=== PATIENT | male | born 1990 | race Caucasian/White ===

== ENCOUNTER → 2020-04-09 13:33 | Outpatient (BNVA) | payer OTHER, SELFPAY | PROVIDERS: PCP Family Medicine; Visit Provider Family Medicine | DX: I10 Essential (primary) hypertension (principal); E78.2 Mixed hyperlipidemia; M54.12 Radiculopathy, cervical region; M51.36 Other intervertebral disc degeneration, lumbar region; M54.42 Lumbago with sciatica, left side; M54.41 Lumbago with sciatica, right side; G89.29 Other chronic pain; Z13.1 Encounter for screening for diabetes mellitus | CPT/HCPCS: 80053; 80061 ==

== ENCOUNTER → 2020-05-30 09:14 | Outpatient (BNVA) | payer OTHER, SELFPAY | PROVIDERS: PCP Family Medicine; Visit Provider Family Medicine Adult Medicine | DX: Z20.822 Contact with and (suspected) exposure to COVID-19 (principal) | CPT/HCPCS: 87635 ==

== ENCOUNTER → 2020-08-27 13:28 | Outpatient (BNVA) | payer OTHER, SELFPAY | PROVIDERS: PCP Family Medicine; Visit Provider Family Medicine | DX: F11.20 Opioid dependence, uncomplicated (principal); M51.36 Other intervertebral disc degeneration, lumbar region | CPT/HCPCS: 80307 ==

== ENCOUNTER → 2020-08-28 00:01 | Outpatient (BNVA) | payer OTHER, SELFPAY | PROVIDERS: PCP Family Medicine; Visit Provider Family Medicine | DX: M51.36 Other intervertebral disc degeneration, lumbar region (principal); F11.20 Opioid dependence, uncomplicated | CPT/HCPCS: 80307 ==

== ENCOUNTER 2025-02-23 11:19 | Emergency (ER) | payer MEDICAID, SELFPAY ==
[2025-02-23 11:25] VITALS: BP 173/100; PULSE 70; RESP 16; TEMP 36.6; O2SAT 100; BMI 32.1
--- OUTSIDE RECORDS SUMMARY | 2025-02-23 11:30 | XMS_ITS | Encounter Summary ---
Author Organization [facility] Address [address] [place] [address] Care Team Providers Care Director Of Accounts Receivable Name Role Phone Donna Greer Primary Care Provider Encounter Details Date Type Department Care Team (Latest Contact Info) Description 06/08/2006 Outpatient Historical [facility] Medicine- [address] [phone] Barbra Fernandez MD [address] [place] [id number] Routine Child Health Exam (Primary Dx); Vaccin for DTP; Vaccin 1 Bacteria NEC Social History Tobacco Use Types Packs/Day Years Used Date Smoking Tobacco: Never Assessed Sex and Gender Information Value Date Recorded Sex Assigned at Not on file 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 Gender Identity Not on file Sexual Orientation Not on file documented as of this encounter Plan of Treatment Not on file documented as of this encounter Visit Diagnoses Diagnosis Routine child health exam- Primary Routine infant or child health check Need for prophylactic vaccination with combined dcfwammvky-mpczkot-vbefvndpl (DTP) vaccine Need for other specified prophylactic vaccination against single bacterial disease documented in this encounter Care Teams Director Of Accounts Receivable Relationship Specialty Start Date End Date Donna Greer FNP PCP - General Nurse Practitioner Family 08/13/20 documented as of this encounter
--- OUTSIDE RECORDS SUMMARY | 2025-02-23 11:30 | XMS_ITS | Encounter Summary ---
Author Organization [facility] Address [address] [place] [address] Care Team Providers Care Blow Torch Operator Name Role Phone Donna Greer Primary Care Provider [phone] Encounter Details Date Type Department Care Team (Latest Contact Info) Description 10/20/2006 Outpatient [facility] Medicine[address] [phone] Barbra Fernandez MD [address] [place] [address] Pain in Thoracic Spine (Primary Dx) Social History Tobacco Use Types Packs/Day Years Used Date Smoking Tobacco: Never Assessed Sex and Gender Information Value Date Recorded Sex Assigned at Not on file 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
--- OUTSIDE RECORDS SUMMARY | 2025-02-23 11:30 | XMS_ITS | Encounter Summary ---
Author Organization [facility] Address [address] [place] [address] Care Team Providers Care Gym Manager Name Role Phone Donna Greer Primary Care Provider [phone] Reason for Referral * MRI (Routine) - Closed Specialty Diagnoses / Procedures Referred By Contac t Referred To Contact Radiology Diagnoses Neuropathy Spondylolisthesis of lumbar region Muscle spasm Low back pain with bilateral sciatica, unspecified back pain laterality, unspecified chronicity Procedures MRI LUMBAR WO CONTRAST Donna Greer FNP Phone: tel: fax: [facility] [address] [address] Phone: tel: fax: Referral ID Status Reason Start Date Expiration Date V isits Requested Visits Authorized [id number] Closed F CTS to Schedule 12/29/2019 04/27/2020 1 1 Encounter Details Date Type Department Care Team (Latest Contact Info) Description 12/09/2019 Ancillary Orders [facility] Pre-Registration [facility] CALL TO MAKE APPOINTMENT ONLY [address] [place] [address] Donna Greer FNP [address] [place] [address] Neuropathy; Spondylolisthesis of lumbar region; Muscle spasm; Low back pain with bilateral sciatica, unspecified back pain laterality, unspecified chronicity Social History Tobacco Use Types Packs/Day Years Used Date Smoking Tobacco: Never Smokeless Tobacco: Current Chew Comments:1 can per day for 1 0 years, once daily and low nicotine Alcohol Use Standard Drinks/Week Comments Yes 0 (1 standard drink = 0.6 oz pur e alcohol) Once monthly or less Sex and Gender Information Value Date Recorded Sex Assigned at Not on file 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 No evidence of hardware failure. Mild bilateral L4-5 neural foraminal stenosis secondary to degenerative disc and facet disease. Narrative 01/24/2020 7:34 PM SHOE DESIGNER Exam: MRI LUMBAR WO CONTRAST Date/Time of Exam: 01/24/2020 4:21 PM Reason For Exam: See Diagnosis. Diagnosis: Neuropathy; Spondylolisthesis of lumbar region; Muscle spasm; Low back pain with bilateral sciatica, unspecified back pain laterality, unspecified chronicity; Low back pain with bilateral sciatica, unspecified back pain laterality, unspecified chronicity. Technique: MRI of the lumbar spine was performed without the administration of intravenous contrast. Findings: Prior L5-S1 posterior decompression and fusion. No evidence of hardware failure. No acute fracture or aggressive osseous lesion. The conus medullaris terminates at L1. Mild atrophy of the lower paraspinal musculature. The retroperitoneal structures demonstrate no acute abnormality. L1-2: Unremarkable L2-3: Unremarkable L3-4: Bilateral degenerative disease with patent spinal canal and neural foramen L4-5: Symmetric disc bulge and bilateral degenerative facet disease with mild bilateral neural foraminal stenosis. L5-S1: Bilateral degenerative facet disease with patent spinal canal and neural foramen. Procedure Note Esteban Loja DO - 01/24/2020 Exam: MRI LUMBAR WO CONTRAST Date/Time of Exam: 01/24/2020 4:21 PM Reason For Exam: See Diagnosis. Diagnosis: Neuropathy; Spondylolisthesis of lumbar region; Muscle spasm; Low back pain with bilateral sciatica, unspecified back pain laterality, unspecified chronicity; Low back pain with bilateral sciatica, unspecified back pain laterality, unspecified chronicity. Technique: MRI of the lumbar spine was performed without the administration of intravenous contrast. Findings: Prior L5-S1 posterior decompression and fusion. No evidence of hardware failure. No acute fracture or aggressive osseous lesion. The conus medullaris terminates at L1. Mild atrophy of the lower paraspinal musculature. The retroperitoneal structures demonstrate no acute abnormality. L1-2: Unremarkable L2-3: Unremarkable L3-4: Bilateral degenerative disease with patent spinal canal and neural foramen L4-5: Symmetric disc bulge and bilateral degenerative facet disease with mild bilateral neural foraminal stenosis. L5-S1: Bilateral degenerative facet disease with patent spinal canal and neural foramen. IMPRESSION: Prior L5-S1 posterior decompression and fusion. No evidence of hardware failure. Mild bilateral L4-5 neural foraminal stenosis secondary to degenerative disc and facet disease. Donna RODRÍGUEZ MR ORDERABLES Final Result documented in this encounter Visit Diagnoses Diagnosis Neuropathy Mononeuritis of unspecified site Spondylolisthesis of lumbar region Acquired spondylolisthesis Muscle spasm Spasm of muscle Low back pain with bilateral sciatica, unspecified back pain laterality, unspecified chronicity Neuropathy Mononeuritis of unspecified site Spondylolisthesis of lumbar region Acquired spondylolisthesis Muscle spasm Spasm of muscle Low back pain with bilateral sciatica, unspecified back pain laterality, unspecified chronicity documented in this encounter Care Teams Gym Manager Relationship Specialty Start Date End Date Donna Greer FNP PCP - General Nurse Practitioner Family 08/13/20 documented as of this encounter
--- OUTSIDE RECORDS SUMMARY | 2025-02-23 11:30 | XMS_ITS | Clinical Summary ---
Author Organization [facility] Address [address] [place] [address] Care Team Providers Care Artificial Limb Maker Name Role Phone Donna Greer Primary Care Provider [phone] Allergies No known active allergies Medications gabapentin (NEURONTIN) 600 mg tablet Take 1 Tablet (600 mg) by mouth 3 times daily. 90 Tablet 6 01/17/2019 Active acetaminophen-c odeine (TYLENOL #3) 300-30 mg tablet TAKE 1 TO 2 TABLETS BY MOUTH THREE TIMES DAILY MAX 5 TABLETS PER DAY 03/08/2019 Active diclofenac potassium (CATAFLAM) 50 mg Tablet Take 1 Tablet by mouth daily. 03/24/2019 Active methocarbamoL (ROBAXIN) 500 mg tablet Take 500 mg by mouth 4 times daily. Active Active Problems Problem Noted Date Diagnosed Date Abnormal visual perception 09/13/2019 Imbalance 09/13/2019 Acquired torticollis 09/13/2019 Diplopia 09/13/2019 Hyperphoria 09/13/2019 Dizziness 09/13/2019 Mechanical low back pain 10/28/2018 Muscle spasm 10/07/2018 Chewing tobacco nicotine dependence 07/16/2018 Essential hypertension 07/15/2018 Preoperative general physical examination 2018 Pars defect of lumbar spine 07/15/2018 Dyslipidemia 07/15/2018 Obesity (BMI 30.0-34.9) 07/15/2018 GERD (gastroesophageal reflux disease) Asthma Overview (07/15/2018): Exercise induced Immunizations Immunization Administration Dates Next Due (M-M-R II/PRIORIX)(12 MO UP) MEASLES, MUMPS AND RUBELLA VIRUS VACCINE, 0.5 ML IM/SUBCUT 07/01/1996,09/06/1992 (TDVAX)(7 YRS UP) TETANUS AN D DIPHTHERIA TOXOIDS, ADSORBED (2 LF OF TETANUS TOXOID AND 2 LF OF DIPHTHERIA TOXOID), 0.5ML (PF), IM 06/08/2006,05/10/1992 (VARIVAX)(12 MOS UP)VARICELL A VIRUS VACCINE (PF) 0.5 ML, SUB CUT 02/03/1997 Dt Dtp Dtap Vaccine 06/08/2006, 7,12/13/1992,02/08,1991,1991 HIB, Unspecified Formulation 09/06/1992, 02/09/1992,1991,10/12 Hepatitis B Vaccine 12/13/1992,09/06/1992,1991 IPV/OPV 07/01/1996, 3,1991,10/12 Meningococcal A Conjugate Vaccine IM 06/08/2006 Family History Medical History Relation Name Comments Healthy Brother Healthy Daughter Hypertension Father Respiratory Disease Father COPD/Smo ker No Known Problems Mother Relation Name Status Comments Brother Alive Daughter Alive Father Alive Mother Alive Social History Tobacco Use Types Packs/Day Years Used Date Smoking Tobacco: Never Smokeless Tobacco: Current Chew Tobacco Cessation:Counseling Given: Yes Comments:1 can per day for 10 years, once daily and low nicotine Alcohol Use Standard Drinks/Week Comments Yes 0 (1 standard drink = 0.6 oz pur e alcohol) Once monthly or less Sex and Gender Information Value Date Recorded Sex Assigned at Not on file Legal Sex Male 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 CLAIMS ANALYST Gender Identity Not on file Sexual Orientation Not on file Last Filed Vital Signs Vital Sign Reading Time Taken Comments Blood Pressure 167/96 08/13/2020 3:30 PM CDT Pulse 80 02/17/2020 10:38 AM INSURANCE CLAIMS ANALYST Temperature 36.8 C (98.3 F) 08/13/2020 3:30 PM CDT Respiratory Rate 16 08/13/2020 3:30 PM CDT Oxygen Saturation 100% 08/13/2020 3:30 PM CDT Inhaled Oxygen Concentration - - Weight 106.1 kg (233 lb 14.4 oz) 08/13/2020 3:30 PM CDT Height 175.3 cm (5' 9 ) 02/17/2020 10:3 8 AM INSURANCE CLAIMS ANALYST Body Mass Index 34.54 02/17/2020 10:38 AM INSURANCE CLAIMS ANALYST Plan of Treatment Health Maintenance Due Date Last Done Comments DTAP/TDAP/TD VACCINES (8 - Tdap) 06/08/2016 06/08/2006, 06/08/2006, 07/01/1996, Additional history exists INFLUENZA VACCINE (#1) 2024 HEPATITIS B VACCINES Completed 12/13/1992, 09/06/1992, 1991 HPV VACCINES (No Doses Required) Completed Medical Devices Implanted Type Area Livestock Speculator Device Identifier Shelf Expiration Date Model / Serial / Lot Hemostatic Surgiflo 8ml W/Thrombin 2994 - [id number] Implanted:10/01 by Toby Reyes MD at (Quantity not on file) Hemostatic N/A: Back [employer] 2994 / / Hemostatic Surgiflo 8ml W/Thrombin 2994 - Sna Implanted:Qty: 1 on 10/28/2018 by Toby Reyes MD at Hemostatic N/A: Spine Lumbar [employer] 10/31/2019 2994 / NA / [id number] Allgrft Magnifuse Pc [id number] - [id number] Implanted:Qty: 1 on 10/28/2018 by Toby Reyes MD at Tissue Spine Lumbar [employer] 07/12/2020 [id number] / [id number] / 6.5 X 40mm Ats Screws Implanted:Qty: 3 on 10/28/2018 by Toby Reyes MD at Spine Lumbar [id number] / / Description:Tray # [id number] 9 6.5 X 45mm Ats Screws Implanted:Qty: 1 on 10/28/2018 by Toby Reyes MD at Spine Lumbar [id number] / / Description:Tray # [id number] 9 5.5 X 40mm Capped Rods Implanted:Qty: 2 on 10/28/2018 by Toby Reyes MD at Spine Lumbar [id number] / / Description:Tray# [id number] 1 Set Screws Implanted:Qty: 4 on 10/28/2018 by Toby Reyes MD at Spine Lumbar [id number] / / Description:[place]# [id number] Insurance Advance Directives For more information, please contact: [phone] * Full Code (Latest Code Status on File) Date Activated Date Inactivated Comments 10/28/2018 9:05 PM 10/31/2018 4:34 PM * Full Code Date Activated Date Inactivated Comments 10/28/2018 9:47 AM 10/28/2018 9:05 PM * Full Code Date Activated Date Inactivated Comments 10/28/2018 9:47 AM 10/28/2018 9:47 AM Care Teams Artificial Limb Maker Relationship Specialty Start Date End Date Donna Greer FNP PCP - General Nurse Practitioner Family 08/13/20
--- OUTSIDE RECORDS SUMMARY | 2025-02-23 11:31 | XMS_ITS | Encounter Summary ---
Author Organization [facility] Address [address] [place] [address] Care Team Providers Care Die Designer Apprentice Name Role Phone Donna Greer Primary Care Provider [phone] Encounter Details Date Type Department Care Team (Latest Contact Info) Description 08/22/1998 Outpatient Historical [facility] [place] [facility] Call[facility] [address] [phone] Rick Silva MD [address] [place] [address] Other, multiple, and unspecified sites, insect bite, nonvenomous, without mention of infection(919.4) (Primary Dx) Social History Tobacco Use Types Packs/Day Years Used Date Smoking Tobacco: Never Assessed Sex and Gender Information Value Date Recorded Sex Assigned at Not on file 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
--- OUTSIDE RECORDS SUMMARY | 2025-02-23 11:31 | XMS_ITS | Encounter Summary ---
Author Organization [facility] Address [address] [place] [address] Care Team Providers Care Paint Tinter Name Role Phone Donna Greer Linda MAID SUPERVISOR Primary Care Provider [phone] Reason for Referral * MRI (Routine) - Closed Specialty Diagnoses / Procedures Referred By Contac t Referred To Contact Radiology Diagnoses Dizziness and giddiness Tinnitus, bilateral Encounter for examination of ears and hearing without abnormal findings Procedures MRI IAC W BRAIN MR W WO CONTRAST Mason Lagunas MD Phone: tel: fax: [facility] [address] [address] Phone: tel: fax: Referral ID Status Reason Start Date Expiration Date V isits Requested Visits Authorized [id number] Closed [facility] TO SCHEDULE (SGF) 03/04/2019 04/03/2019 1 1 SIFICATION INSPECTOR Encounter Details Date Type Department Care Team (Latest Contact Info) Description 03/09/2019 Ancillary Orders [facility] Pre-Registration [place] CALL TO MAKE APPOINTMENT ONLY [address] [place] [address] Mason Lagunas MD [address] [facility] [place] [phone] Dizziness and giddiness; Tinnitus, bilateral; Encounter for examination of ears and hearing without abnormal findings Social History Tobacco Use Types Packs/Day Years [...] on file Legal Sex Male 6:42 AM CLASSIFICATION INSPECTOR Gender Identity Not on file Sexual Orientation Not on file documented as of this encounter Plan of Treatment Not on file documented as of this encounter Results * MRI IAC W BRAIN MR W WO CONTRAST (03/30/2019 2:26 PM CLASSIFICATION INSPECTOR) Anatomical Region Laterality Modality Magnetic Resonan ce 03/30/2019 2:26 PM CLASSIFICATION INSPECTOR Impressions 03/31/2019 4:29 PM CLASSIFICATION INSPECTOR IMPRESSION: 1. Unremarkable. [id number] Narrative 03/31/2019 4:29 PM CLASSIFICATION INSPECTOR Exam: MRI IAC W BRAIN MR W WO CONTRAST Date/Time of Exam: 03/30/2019 2:26 PM Reason For Exam: See Diagnosis. Diagnosis: Dizziness and giddiness; Tinnitus, bilateral; Encounter for examination of ears and hearing without abnormal findings. Technique: Multiplanar imaging of the brain with thin section pre and postcontrast images through the internal auditory canals. Contrast: 20 mL of MultiHance. Comparison: None. FINDINGS: Normal midline structures, ventricles and relationships at the foramen magnum. No acute infarct. No abnormal signal or enhancement in the cerebellar pontine angle cisterns or internal auditory canals. No fluid in the middle ear cavities or mastoid air cells. Minimal ethmoid sinus mucosal thickening. Slight septal deviation to the right. Procedure Note Andres Galaviz MD - 03/31/2019 Exam: MRI IAC W BRAIN MR W WO CONTRAST Date/Time of Exam: 03/30/2019 2:26 PM Reason For Exam: See Diagnosis. Diagnosis: Dizziness and giddiness; Tinnitus, bilateral; Encounter for examination of ears and hearing without abnormal findings. Technique: Multiplanar imaging of the brain with thin section pre and postcontrast images through the internal auditory canals. Contrast: 20 mL of MultiHance. Comparison: None. FINDINGS: Normal midline structures, ventricles and relationships at the foramen magnum. No acute infarct. No abnormal signal or enhancement in the cerebellar pontine angle cisterns or internal auditory canals. No fluid in the middle ear cavities or mastoid air cells. Minimal ethmoid sinus mucosal thickening. Slight septal deviation to the right. IMPRESSION: 1. Unremarkable. [id number] Mason Lagunas MD MR ORDERABLES Final Result documented in this encounter Visit Diagnoses Diagnosis Dizziness and giddiness Tinnitus, bilateral Unspecified tinnitus Encounter for examination of ears and hearing without abnormal findings Dizziness and giddiness Tinnitus, bilateral Unspecified tinnitus Encounter for examination of ears and hearing without abnormal findings documented in this encounter Care Teams Paint Tinter Relationship Specialty Start Date End Date Donna Greer, MAID SUPERVISOR PCP - General Nurse Practitioner Family 08/13/20 documented as of this encounter
--- OUTSIDE RECORDS SUMMARY | 2025-02-23 11:31 | XMS_ITS | Encounter Summary ---
Author Organization [facility] Address [address] [place] [address] Care Team Providers Care Veneer Splicer Name Role Phone Donna Greer Primary Care Provider [phone] Encounter Details Date Type Department Care Team (Latest Contact Info) Description 10/22/2005 Outpatient [facility] Medicine [address] [phone] Festus Duron, MEDICAL BILLING SPECIALIST [address] [place] [address] Unspecified Otitis Media (Primary Dx) Social History Tobacco Use Types Packs/Day Years Used Date Smoking Tobacco: Never Assessed Sex and Gender Information Value Date Recorded Sex Assigned at Not on file 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
--- OUTSIDE RECORDS SUMMARY | 2025-02-23 11:31 | XMS_ITS | Encounter Summary ---
Author Organization [facility] Address [address] [place] [address] Care Team Providers Care Registered Land Surveyor Name Role Phone Donna Greer Primary Care Provider Encounter Details Date Type Department Care Team (Late st Contact Info) Description 09/24/2000 Outpatient Historical [facility] [place] [address] [place] [phone] Laurel Mehta MD NO ADDRESS ON FILE Social History Tobacco Use Types Packs/Day Years Used Date Smoking Tobacco: Never Assessed Sex and Gender Information Value Date Recorded Sex Assigned at Not on file Legal Sex Male 6:42 AM USER SUPPORT SPECIALIST Gender Identity Not on file Sexual Orientation Not on file documented as of this encounter Plan of Treatment Not on file documented as of this encounter Visit Diagnoses Not on filedocumented in this encounter Care Teams Registered Land Surveyor Relationship Specialty Start Date End Date Donna Greer FNP PCP - General Nurse Practitioner Family 08/13/20 documented as of this encounter
--- OUTSIDE RECORDS SUMMARY | 2025-02-23 11:31 | XMS_ITS | Encounter Summary ---
Author Organization [facility] Address [address] [place] [address] Care Team Providers Care Nutritionist Name Role Phone Donna Greer Primary Care Provider [phone] Encounter Details Date Type Department Care Team (Latest Contact Info) Description 06/14/2003 Outpatient Historical [facility] Medicine [address] [phone] Win Guzman MD [address] [place] [phone] DERMATOPHYTOSIS OF GROIN (Primary Dx) Social History Tobacco Use Types Packs/Day Years Used Date Smoking Tobacco: Never Assessed Sex and Gender Information Value Date Recorded Sex Assigned at Not on file Legal Sex Male 6:42 AM BEHAVIOR INTERVENTIONIST Gender Identity Not on file Sexual Orientation Not on file documented as of this encounter Plan of Treatment Not on file documented as of this encounter Visit Diagnoses Diagnosis Dermatophytosis of groin and perianal area- Primary documented in this encounter Care Teams Nutritionist Relationship Specialty Start Date End Date Donna Greer FNP PCP - General Nurse Practitioner Family 08/13/20 documented as of this encounter
--- OUTSIDE RECORDS SUMMARY | 2025-02-23 11:31 | XMS_ITS | Encounter Summary ---
Author Organization [facility] Address [address] [place] [address] Care Team Providers Care Yarding Supervisor Name Role Phone Donna Greer Primary Care Provider [phone] Encounter Details Date Type Department Care Team (Latest Contact Info) Description 04/18/[address] [phone] Festus Duron, TAIL TRIMMER [address] [place] [address] VIRAL WARTS NOS (Primary Dx) Social History Tobacco Use Types Packs/Day Years Used Date Smoking Tobacco: Never Assessed Sex and Gender Information Value Date Recorded Sex Assigned at Not on file Legal Sex Male 6:42 AM SHEET METAL DUCT INSTALLER HELPER Gender Identity Not on file Sexual Orientation Not on file documented as of this encounter Plan of Treatment Not on file documented as of this encounter Visit Diagnoses Diagnosis Viral warts, unspecified- Primary documented in this encounter Care Teams Yarding Supervisor Relationship Specialty Start Date End Date Donna Greer FNP PCP - General Nurse Practitioner Family 08/13/20 documented as of this encounter
--- OUTSIDE RECORDS SUMMARY | 2025-02-23 11:31 | XMS_ITS | Encounter Summary ---
Author Organization [facility] Address [address] [place] [address] Care Team Providers Care Dietary Tech Name Role Phone Donna Greer Primary Care Provider [phone] Encounter Details Date Type Department Care Team (Latest Contact Info) Description 05/29/2004 Outpatient Historical [facility] [address] [id number] Geraldine Roberts MD [address] [place] [id number] ACUTE PHARYNGITIS (Primary Dx) Social History Tobacco Use Types Packs/Day Years Used Date Smoking Tobacco: Never Assessed Sex and Gender Information Value Date Recorded Sex Assigned at Not on file Legal Sex Male 6:42 AM FIELD STAFF Gender Identity Not on file Sexual Orientation Not on file documented as of this encounter Plan of Treatment Not on file documented as of this encounter Visit Diagnoses Diagnosis Acute pharyngitis- Primary documented in this encounter Care Teams Dietary Tech Relationship Specialty Start Date End Date Donna Greer FNP PCP - General Nurse Practitioner Family 08/13/20 documented as of this encounter
--- OUTSIDE RECORDS SUMMARY | 2025-02-23 11:31 | XMS_ITS | Encounter Summary ---
Author Organization [facility] Address [address] [place] [address] Care Team Providers Care Billiard Table Assembler Name Role Phone Donna Greer Primary Care Provider [phone] Encounter Details Date Type Department Care Team (Latest Contact Info) Description 08/24/[address] 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
--- OUTSIDE RECORDS SUMMARY | 2025-02-23 11:31 | XMS_ITS | Encounter Summary ---
Author Organization [facility] Address [address] [place] [address] Care Team Providers Care Cigar Packer And Picker Name Role Phone Donna Greer Primary Care Provider [phone] Encounter Details Date Type Department Care Team (Latest Contact Info) Description 01/15/2001 Outpatient Historical [facility] [place] [address] [place] [address] Laurel Mehta MD NO ADDRESS ON FILE CELLULITIS, TOE NOS (Primary Dx) Social History Tobacco Use Types Packs/Day Years Used Date Smoking Tobacco: Never Assessed Sex and Gender Information Value Date Recorded Sex Assigned at Not on file 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
--- OUTSIDE RECORDS SUMMARY | 2025-02-23 11:31 | XMS_ITS | Encounter Summary ---
Author Organization [facility] Address [address] [place] [address] Care Team Providers Care Fishing Tool Operator Name Role Phone Donna Greer Primary Care Provider [phone] Encounter Details Date Type Department Care Team (Latest Contact Info) Description 04/17/2004 Outpatient Historical [facility] [address] [address] Geraldine Roberts MD [address] [place] [address] UNSPECIFIED VIRAL INFECTION (Primary Dx) Social History Tobacco Use Types Packs/Day Years Used Date Smoking Tobacco: Never Assessed Sex and Gender Information Value Date Recorded Sex Assigned at Not on file 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
--- NOTE | 2025-02-23 11:37 | W.ED.BACK ---
HPI - Back Pain/Injury General: Chief Complaint: Back Pain/Injury Stated Complaint: low back pain Time Seen by Provider: 02/23/25 11:24 History of Present Illness: 34-year-old man with a history of chronic pain syndrome who is on oxycodone therapy regularly who presents emergency room with worsening lumbar back pain. He has waves of pain down his low back. He says he feels something grinding in his back and he is concerned something was dislodged. He says this started when he was changing a tire for his mother and the tire popped and he felt something pop in his back. No saddle numbness, no fecal or urinary retention or incontinence, no focal motor deficit, no sensory deficit. Related Data Home Medications ?Medication ?Instructions ?Recorded ?Confirmed cetirizine 10 mg tablet 10 mg PO DAILY PRN allergies 02/23/25 02/23/25 fluticasone propionate 50 2 spray intranasal DAILY 02/23/25 02/23/25 mcg/actuation nasal spray,suspension metoprolol succinate 50 mg 50 mg PO BID 02/23/25 02/23/25 tablet,extended release 24 hr naloxone 4 mg/actuation nasal See Rx Instructions .Route .COMPLEX 02/23/25 02/23/25 spray (Narcan) oxycodone 15 mg tablet 7.5 mg PO Q4H PRN Pain 02/23/25 02/23/25 pregabalin 75 mg capsule 75 mg PO Q12H 02/23/25 02/23/25 tamsulosin 0.4 mg capsule 0.4 mg PO DAILY PRN urine flow 02/23/25 02/23/25 tizanidine 4 mg tablet 4 mg PO TID 02/23/25 02/23/25 valsartan 80 mg tablet 80 mg PO DAILY 02/23/25 02/23/25 Previous Rx's ?Medication ?Instructions ?Recorded diclofenac sodium 50 mg 100 mg (2 x 50 mg) PO BID PAIN 30 08/01/20 tablet,delayed release days #120 tabs cyclobenzaprine 10 mg tablet 10 mg PO Q8H PRN muscle spasm #20 02/23/25 tabs polyethylene glycol 3350 17 17 g PO DAILY #510 grams 02/23/25 gram/dose oral powder (Miralax) prednisone 20 mg tablet 60 mg (3 x 20 mg) PO DAILY #20 tabs 02/23/25 Allergies Allergy/AdvReac Type Severity Reaction Status Date / Time No Known Allergies Allergy Verified 02/23/25 11:29 Review of Systems Narrative: Constitutional symptoms: Negative except as documented in HPI. Skin symptoms: Negative except as documented in HPI. Eye symptoms: Negative except as documented in HPI. ENMT symptoms: Negative except as documented in HPI. Respiratory symptoms: Negative except as documented in HPI. Cardiovascular symptoms: Negative except as documented in HPI. Gastrointestinal symptoms: Negative except as documented in HPI. Genitourinary symptoms: Negative except as documented in HPI. Musculoskeletal symptoms: Negative except as documented in HPI. Neurologic symptoms: Negative except as documented in HPI. Psychiatric symptoms: Negative except as documented in HPI. Endocrine symptoms: Negative except as documented in HPI. PFSH ED PFSH: Medical History (Updated 02/23/25 @ 16:13 by Chapis Payne MD) Combined hyperlipidemia Insomnia Fibromyalgia Chronic back pain Degenerative disc disease Patient is currently stable on the hydrocodone 7.51 daily. GERD (gastroesophageal reflux disease) Surgical History H/O spinal fusion Social History Smoking and tobacco/nicotine status: current every day tobacco/nicotine user smokeless tobacco Smokeless tobacco user: chewing tobacco Smokeless tobacco details: 1 can a week Alcohol intake: never Substance/Drug Use: never Physical Exam Narrative: EXAM NARRATIVE: General: Alert, no acute distress. Head: Normocephalic Neck: Trachea midline Eye: Extraocular movements are intact. Ears, nose, mouth and throat: Oral mucosa moist Respiratory: Respirations are non-labored Musculoskeletal: Normal ROM Back: no step off, no focal tenderness, some paraspinal muscle tenderness Neurological: Alert and oriented, No focal neurological deficit observed. Psychiatric: Cooperative, appropriate mood & affect. Course Vital Signs: Vital signs: Vital Signs Temperature 98 F 02/23/25 11:25 Pulse Rate 70 02/23/25 11:25 Respiratory Rate 16 02/23/25 11:25 Blood Pressure 173/100 02/23/25 11:25 Pulse Oximetry 100 02/23/25 11:25 MDM - Back Pain/Injury Medical Decision Making Medical decision making Patient's reason for coming to the emergency room: Back pain Social determinants:patient is unemployed I reviewed the patient's medical record. History of back issues. Chronic pain. I reviewed the patient's current home meds DIRECTOR OF STRATEGIC COMMUNICATIONS shows patient is on oxycodone therapy regularly. Alternate historians: None Differential diagnosis: including but not limited to and based on the above HPI, review of systems and physical exam: Patient has musculoskeletal back pain with no neurologic symptoms. Because of a history of wearing his complaint that he feels like something is broken and there CT is being done to examine that. CT of the lumbar spine: Previous fusion. No obvious acute issues. This was reviewed and interpreted by myself the emergency room physician. I also reviewed the radiology report. Reexamination: Patient remained stable. No increased work of breathing. No altered mental status. No focal motor deficits. Assessment and plan: Lumbar pain ?IM Decadron and Toradol. I am Norflex. P.o. Admire. - Discharged home - Discussed plan with patient. Answered any questions. - Evaluation and treatment of this problem were appropriate in the emergency setting. Labs Radiology Impressions Lumbar Spine CT 02/23/25 12:18 IMPRESSION: 1. Previous L5-S1 fusion. Solid left posterolateral bony fusion. No definite right posterolateral bridging bone. 2. Degenerative changes at L4-L5 with mild bilateral neural foraminal narrowing related to facet hypertrophy and bulging disc. 3. Transitional lumbosacral anatomy with arbitrary numbering designation as described above. All radiology interpretation(s) finalized by discharge Discharge Plan Discharge Patient Disposition: Home Clinical Impression: Strain of lumbar region Condition: Stable Prescriptions: New cyclobenzaprine 10 mg tablet 10 mg PO Q8H PRN (Reason: muscle spasm) Qty: 20 0RF prednisone 20 mg tablet 60 mg PO DAILY Qty: 20 0RF Rx Instructions: 3 tabs (60 mg) x 3 days. 2 tabs (40 mg) x 3 days. 1 tab (20 mg) x 3 days. 1/2 tab (10 mg) x 4 days polyethylene glycol 3350 [Miralax] 17 gram/dose powder 17 g PO DAILY Qty: 510 0RF Rx Instructions: Take 1 scoop daily while taking pain medications. No Action diclofenac sodium 50 mg tablet,delayed release (DR/EC) 100 mg PO BID 30 Days Qty: 120 2RF Rx Instructions: WITH FOOD cetirizine 10 mg tablet 10 mg PO DAILY PRN (Reason: allergies) tizanidine 4 mg tablet 4 mg PO TID metoprolol succinate 50 mg tablet extended release 24 hr 50 mg PO BID valsartan 80 mg tablet 80 mg PO DAILY oxycodone 15 mg tablet 7.5 mg PO Q4H PRN (Reason: Pain) tamsulosin 0.4 mg capsule 0.4 mg PO DAILY PRN (Reason: urine flow) fluticasone propionate 50 mcg/actuation spray,suspension 2 spray INTRANASAL DAILY pregabalin 75 mg capsule 75 mg PO Q12H naloxone [Narcan] 4 mg/actuation spray,non-aerosol See Rx Instructions .ROUTE .COMPLEX Rx Instructions: CALL 911. USE ONE FULL SPRAY IN ONE NOSTRIL ONE TIME. REPEAT EVERY 2-3 MINUTES NEEDED IF NO OR MINIMAL RESPONSE. Discharge Orders: Discharge ED (Routine); Ordered 02/23/25 Ordered By: Chapis Payne Referrals: Juanita Gallardo MD [Primary Care Provider, Family Practice] Discharge Diet: Usual diet Discharge Activity: Increase activity as tolerated Patient Instructions: Back Pain (ED), Opioid Safety, Pain Management, Patient Portal & Abdirahman Instructions Activity Restrictions/Additional Instructions: Thank you for choosing [facility] for your healthcare needs today. You have been screened and evaluated and felt safe for discharge. Health conditions do change or evolve sometimes and as such it is important that you follow up with your Primary Doctor to be re checked, 3-5 days is a general good time frame for follow up. You are always welcome to return to the ED for re assessment if your symptoms are worsening or you have new concerns. (Please note that included in your discharge packet is information concerning opioid safety and pain management. This information is given to all patients who are discharged from the ER regardless of their discharge diagnosis or the medicines they usually take or are prescribed.) Print Language: Egyptian Coding Level of Care Code ED Tunnel Inspector for Merary Ramirez
--- NOTE | 2025-02-23 12:18 | CTR_ITS ---
PROCEDURE INFORMATION: Exam: CT Lumbar Spine Without Contrast Exam date and time: 02/23/2025 12:55 PM Age: 34 years old Clinical indication: Low back pain; Prior surgery; Surgery date: 6+ months; Surgery type: Lumbar fusion; HX of lumbarization of s1 vertebra, per patient TECHNIQUE: Imaging protocol: Computed tomography of the lumbar spine without contrast. Radiation optimization: All CT scans at this facility use at least one of these dose optimization techniques: automated exposure control; mA and/or kV adjustment per patient size (includes targeted exams where dose is matched to clinical indication); or iterative reconstruction. COMPARISON: No relevant prior studies available. RADIATION DOSE METRICS: Total DLP (mGy-cm): 1209.16 FINDINGS: Tubes, catheters and devices: Hardware is intact. Bones/joints: Previous L5-S1 fusion. Solid left posterolateral bony fusion. No definite right posterolateral bridging bone. Mild retrolisthesis L4-L5. Degenerative changes at L4-L5 with mild bilateral neural foraminal narrowing related to facet hypertrophy and bulging disc. Transitional lumbosacral anatomy. Segments are designated with sacralized L5. Soft tissues: Unremarkable. CT/CT lumbar spine wo con* [id number] IMPRESSION: 1. Previous L5-S1 fusion. Solid left posterolateral bony fusion. No definite right posterolateral bridging bone. 2. Degenerative changes at L4-L5 with mild bilateral neural foraminal narrowing related to facet hypertrophy and bulging disc. 3. Transitional lumbosacral anatomy with arbitrary numbering designation as described above.
[2025-02-23] MEDS: orphenadrine 30 mg/mL Inj 2 mL 60 MG IM (12:35)
[2025-02-23] MEDS: HYDROcodone-acetaminophen 5-325 mg Tablet 1 TAB PO (12:36)
== END 2025-02-23 14:20 | disposition home or self-care (01) ==
PROVIDERS: Emergency Provider Emergency Medicine; PCP Family Medicine
DX: S39.012A Strain of muscle, fascia and tendon of lower back, initial encounter (principal); F17.220 Nicotine dependence, chewing tobacco, uncomplicated; E78.2 Mixed hyperlipidemia; X58.XXXA Exposure to other specified factors, initial encounter
CPT/HCPCS: 72131; 96372; 99284; J1100; J1885; J2360; J9999